=== PATIENT | male | born 1960 | race Caucasian/White ===

== ENCOUNTER → 2020-12-07 | Day surgery (SDC) | payer SELFPAY ==
[~2020-12-07] VITALS: Ht 170.2 cm; Wt 58.0 kg
== END | disposition home or self-care (01) ==
LOC: FAS 08:44
DX: Z12.11 Encounter for screening for malignant neoplasm of colon (principal); K57.30 Diverticulosis of large intestine without perforation or abscess without bleeding; R63.4 Abnormal weight loss; I10 Essential (primary) hypertension; E78.00 Pure hypercholesterolemia, unspecified; M19.90 Unspecified osteoarthritis, unspecified site; F41.9 Anxiety disorder, unspecified; F17.210 Nicotine dependence, cigarettes, uncomplicated; Z68.20 Body mass index [BMI] 20.0-20.9, adult
CPT/HCPCS: J2250; J2704; J7120